=== PATIENT | female | born 1965 | race Caucasian/White ===

== ENCOUNTER → 2024-10-01 | Outpatient (CLI) | payer OTHER ==
--- NOTE | 2024-10-01 15:06 | XR ---
EXAMINATION TYPE: XR hand complete RT DATE OF EXAM: 10/01/2024 2:56 PM COMPARISON: None CLINICAL INDICATION: Female, 59 years old with history of S60.221A CONTUSION OF RIGHT HAND S70.02XA C ONTUSIO; PHH, pain TECHNIQUE: XR hand complete RT 3 views were obtained. FINDINGS: Normal alignment of the visualized joints. No acute osseous pathology is identified. No e vidence of soft tissue swelling. No significant degeneration nonaggressive appearing lucent area in t he second digit proximal phalanx 6 x 3 mm. IMPRESSION: 1. No acute osseous pathology. 2. 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 3. Nonaggressive appearing lucent lesion in the proximal phalanx possibly representing enchondroma. [facility], , 10/01/2024 3:04 PM
--- NOTE | 2024-10-01 15:09 | XR ---
EXAMINATION TYPE: XR Hip Complete LT DATE OF EXAM: 10/01/2024 2:57 PM COMPARISON: 10/01/2024 CLINICAL INDICATION: Female, 59 years old with history of S60.221A CONTUSION OF RIGHT HAND S70.02XA C ONTUSIO; PHH, pain TECHNIQUE: XR Hip Complete LT; Frontal and lateral views FINDINGS: No evidence for acute process, joint dislocation or significant soft tissue swelling. Osteo phyte formation of the superior acetabulum of the hip. There is mild joint space narrowing. IMPRESSION: 1. No evidence for acute process. 2. Mild hip osteoarthrosis. [facility], , 10/01/2024 3:07 PM
--- NOTE | 2024-10-01 15:10 | XR ---
EXAMINATION TYPE: XR pelvis AP view DATE OF EXAM: 10/01/2024 2:57 PM COMPARISON: 10/01/2024 CLINICAL INDICATION: Female, 59 years old with history of S60.221A CONTUSION OF RIGHT HAND S70.02XA C ONTUSIO; pain PH TECHNIQUE: XR pelvis AP view, examined in a single projection. FINDINGS: There is no evidence of fracture or dislocation. There is no soft tissue abnormality. No a bnormal calcifications are present. The spine appears intact. The hips appear intact. Osteophyte form ation of the superior acetabulum bilaterally with mild joint space narrowing. IMPRESSION: No acute osseous pathology. Mild degeneration changes of the hip. [facility], , 10/01/2024 3:08 PM
== END | disposition home or self-care (01) ==
LOC: RADXRMAIN 14:36
PROVIDERS: ATTEND Emergency Medicine
DX: S60.221A Contusion of right hand, initial encounter (principal); S70.02XA Contusion of left hip, initial encounter; M19.041 Primary osteoarthritis, right hand; M16.12 Unilateral primary osteoarthritis, left hip; X58.XXXA Exposure to other specified factors, initial encounter
CPT/HCPCS: 72170; 73502

== ENCOUNTER → 2024-10-14 | Outpatient (CLI) | payer OTHER ==
--- NOTE | 2024-10-14 09:30 | XR ---
EXAMINATION TYPE: XR hand complete RT DATE OF EXAM: 10/14/2024 CLINICAL INDICATION: Female, 59 years old with history of S60.221D CONTUSION OF RIGHT HAND, SUBSEQUEN T ENCOU, pain TECHNIQUE: Frontal, lateral and oblique images of the right hand are obtained. COMPARISON: Prior right hand x-ray 13 days earlier. FINDINGS: There is no acute fracture/dislocation evident in the right hand. The joint spaces in the right hand appear within normal limits. Stable 5 mm lucent lesion proximal metaphysis of the second p roximal phalanx. The overlying soft tissue appears unremarkable. IMPRESSION: There is no acute fracture or dislocation in the right hand. No significant change from most recent x-ray. [facility], , 10/14/2024 9:28 AM
== END | disposition home or self-care (01) ==
LOC: RADXRMAIN 08:55
PROVIDERS: ATTEND Emergency Medicine
DX: S60.221D Contusion of right hand, subsequent encounter (principal)